=== PATIENT | female | born 1930 | race Caucasian/White ===

== ENCOUNTER → 2017-03-15 | Outpatient (CLI) | payer MEDICARE, BC ==
[~2017-03-15] MED LIST: CALTRATE-600 W600 MG PO; CLARITIN DPS10 MG PO; CULTURELLE1 CAP PO; DUONEB DPS3 ML IH; FEMARA DPS2.5 MG PO; FORTICAL NASAL3.7 ML NS; LASIX DPS40 MG PO; LEXAPRO DPS20 MG PO; MAG-OX400 MG PO; MICRO-K DPS10 MEQ PO; NORVASC DPS10 MG PO; PEPCID DPS20 MG PO; SYNTHROID DPS0.1 MG PO; TOPROL XL DPS25 MG PO; TOPROL XL DPS50 MG PO; TRAMADOL-ACETA1 EACH PO; VITAMIN D31000 UNIT PO; ZESTRIL DPS10 MG PO; [UNRECOGNIZED DRUG - OTHER] PO
--- NOTE | ~2017-03-15 | ECH ---
Transthoracic Echocardiography Report (TTE) Demographics Patient Name KAROLINE BRYANT I Date of Study 03/15/2017 Patient Number [id number] Visit Number [id number] Date of 1930 Room Number Accession Number [id number] Gender Female Age 86 year(s) Referring Mary Bill Bottle Washer Machine Alicia Benitez Physician JOANA Physician Linden Avila MD Diamond Powder Technician Physician Tacho Supervising Ordering Physician Mary Bill MD, MD/MLP Nurse Stress Motorman/Woman Conclusions Contractility Score Summary Normal Left Ventricular contractility was noted. Summary Technically good exam. The estimated left ventricular ejection fraction is 55-60%. Mild concentric left ventricular hypertrophy. Diastolic assessment reveals Grade II pseudonormal diastolic function . There is trivial aortic regurgitation by color Doppler. Mild tricuspid regurgitation by color Doppler. There is moderate pulmonary hypertension. The pulmonary pressure (RVSP) is 49 mmHg. Recommendation The patient will be given the results of this study by the physician who ordered the exam. Procedure Type of Study TTE procedure:Echo Complete SF. Procedure Date Date: 03/15/2017 Start: 09:02 AM Technical Quality: Good visualization Indications:Fatigue and Hypertension. Appropriate Use Criteria: 8 Height: 68 inches Weight: 163 pounds BSA: 1.87 m Rhythm: NSR HR: 68 bpm BP: 130/60 mmHg M-Mode/2D Measurements LV Diastolic Dimension: 4.73 cm LV Systolic Dimension: 3.1 cm LV Septum Diastolic: 1.09 cm LV PW Diastolic: 1.1 cm AO Root Dimension: 2.96 cm Cardiac Output: 3.2 l/min LA Dimension: 4.15 cm Cardiac Index: 1.71 l/min*m RV Diastolic Dimension: 3.67 cm LA volume index: 28 ml/m LVOT: 1.83 cm LVOT VTI: 17.88 cm RV Base: 3.8 cm LV Stroke volume: 47 ml RV Mid: 2.6 cm LV Stroke volume index: 25.13 ml/m TAPSE: 1.8 cm TDI-S': 13 cm/s Doppler Measurements AV Peak Velocity: 1.1 m/s MV Peak E-Wave: 0.72 m/s AV Peak Gradient: 4.84 mmHg MV Peak A-Wave: 0.67 m/s AV Mean Gradient: 2.94 mmHg MV E/A Ratio: 1.07 LVOT Peak Velocity: 0.86 m/s MV P1/2t: 49.3 msec AV Area (Continuity):1.75 cm MV Deceleration Time: 194.8 msec TR Velocity:3.41 m/s MV Area (PHT): 4.47 cm TR Gradient:46.51 mmHg PV Peak Velocity: 0.85 m/s Estimated RAP:3 mmHg PV Peak Gradient: 2.86 mmHg Estimated RVSP: 50 mmHg Estimated PASP: 49.51 mmHg E' Septal Velocity: 0.05 m/s A' Septal Velocity: 0.06 m/s RA Area: 13.89 cm Findings Left Ventricle The left ventricle is normal in size . Mild concentric left ventricular hypertrophy. Diastolic assessment reveals Grade II pseudonormal diastolic function . Right Ventricle Normal right ventricle structure and function. Left Atrium Normal left atrial size. Right Atrium Normal right atrial size. Mitral Valve Mild mitral annular calcification. Trivial mitral regurgitation by color Doppler. Aortic Valve Normal aortic valve structure and function. There is trivial aortic regurgitation by color Doppler. Tricuspid Valve Normal tricuspid valve structure and function. Mild tricuspid regurgitation by color Doppler. There is moderate pulmonary hypertension. The pulmonary pressure (RVSP) is 49 mmHg. Pulmonic Valve Normal pulmonic valve structure and function. Pericardial Effusion No evidence of pericardial effusion. Miscellaneous Visualized portions of the aortic root and ascending aorta appear normal in size. Pleural Effusion No evidence of pleural effusion. Contractility Score LV regional wall motion:(0-Non visualized 1-Normal 2-Hypokinesis 3-Akinesis 4-Dyskinesis 5-Aneurysm) Signature
== END | disposition home or self-care (01) ==
LOC: CARD 08:44
DX: I10 Essential (primary) hypertension (principal); I07.1 Rheumatic tricuspid insufficiency; I27.2 Other secondary pulmonary hypertension; I51.7 Cardiomegaly; R53.83 Other fatigue

== ENCOUNTER 2017-05-10 14:03 | Emergency (ER) | payer MEDICARE, BC ==
--- NOTE | 2017-05-18 18:56 | ER ---
ADMIT: 05/10/2017 RM/LOC: ER [facility] MR#: [id number] [facility] [id number] [place], [place] [id number] KAROLINE BRYANT [address] [place] [address] Emergency Room Report SEX: F AGE: 86 : 1930 DATE: 05/10/2017 ADDENDUM: This patient comes into the ER because she has been dizzy for the last several months. She states that it comes and goes and when it comes, it lasts for a few minutes. She becomes dizzy with her head spinning, but then it goes away and she feels better. She came in today because she is not sure why it has been lasting for so long. On physical exam, she is alert and oriented. She says her appetite is normal. She denies any pain. CBC and BMP are normal. Orthostatic blood pressures are normal. I will try her on meclizine and have her follow up with Dr. Hernandez in the next few days if she is not feeling better. Please see my T-sheet. MERRY Delatorre / William Paz MD / vishl JOB #: [id number] CC: William Paz MD, Attending Physician Shae Hernandez MD, Family Physician
== END 2017-05-10 17:35 | disposition home or self-care (01) ==
LOC: ER 14:03
DX: R42 Dizziness and giddiness (principal); E03.9 Hypothyroidism, unspecified; I10 Essential (primary) hypertension; Z85.3 Personal history of malignant neoplasm of breast; Z98.890 Other specified postprocedural states; Z88.2 Allergy status to sulfonamides; Z88.8 Allergy status to other drugs, medicaments and biological substances; Z79.899 Other long term (current) drug therapy